=== PATIENT | female | born 1965 | race Caucasian/White ===

== ENCOUNTER 2017-09-07 16:50 | Emergency (ER) | payer MEDICARE ==
--- NOTE | 2017-09-07 17:19 | ERPHSYRPT ---
- History of Present Illness Time Seen by Provider: 09/07/17 17:12 Source: patient Exam Limitations: no limitations Physician History: The patient is a 51-year-old right-handed female who comes in complaining of right hand and wrist pain and swelling for one week. She was seen at another ER and was given [place] and naproxen along with a wrist brace. She has been icing the wrist and hand without relief. She states no x-rays were done at that time a being seen. She denies any trauma. She states that she woke up with it swollen and painful one morning. Her past medical history is significant for anxiety, hypothyroidism, high cholesterol, bilateral knee replacements. Occurred: last week Method of Injury: unknown Quality: constant, aching Severity of Pain-Max: severe Severity of Pain-Current: severe Extremities Pain Location: wrist: right, hand: right Modifying Factors: Improves With: cold therapy, movement, pain medication Associated Symptoms: none Allergies/Adverse Reactions: duloxetine [From Cymbalta] Allergy (Verified 09/07/17 17:04) pregabalin [From Lyrica] Allergy (Verified 09/07/17 17:04) celecoxib [From Celebrex] Adverse Reaction (Mild, Verified 09/07/17 17:04) Home Medications: Buspirone HCl [Buspirone HCl] 5 mg PO DAILY 09/07/17 [History] Hydrocodone/Acetaminophen [Hydrocodone-Acetamin 5-325 mg] 1 tab PO UD 09/07/17 [ History] Levothyroxine Sodium 100 mcg PO DAILY 09/07/17 [History] Lorazepam 0.5 mg [Ativan 0.5 MG] 0.5 mg PO HS 09/07/17 [History] Milnacipran HCl [Savella] 100 mg PO BID 09/07/17 [History] Rosuvastatin Calcium [Rosuvastatin Calcium] 5 mg PO DAILY 09/07/17 [History] Sertraline HCl [Sertraline HCl] 50 mg PO DAILY 09/07/17 [History] Tizanidine HCl 4 mg [Zanaflex 4 MG] 4 mg PO UD 09/07/17 [History] - Review of Systems Constitutional: No Fever, No Chills Eyes: No Symptoms Ears, Nose, & Throat: No Symptoms Respiratory: No Cough, No Dyspnea Cardiac: No Chest Pain, No Edema, No Syncope Abdominal/Gastrointestinal: No Abdominal Pain, No Nausea, No Vomiting, No Diarrhea Genitourinary Symptoms: No Dysuria Musculoskeletal: Joint Pain, Joint Swelling Skin: No Rash Neurological: No Dizziness, No Focal Weakness, No Sensory Changes Psychological: No Symptoms Endocrine: No Symptoms Hematologic/Lymphatic: No Symptoms Immunological/Allergic: No Symptoms All Other Systems: Reviewed and Negative - Nursing Vital Signs Nursing Vital Signs: Initial Vital Signs Temperature 98.4 F 09/07/17 17:12 Pulse Rate 115 H 09/07/17 17:12 Respiratory Rate 18 09/07/17 17:12 Blood Pressure 151/90 09/07/17 17:12 O2 Sat by Pulse Oximetry 97 09/07/17 17:12 Pain Scale Pain Intensity 6 - Physical Exam General Appearance: mild distress Eyes, Ears, Nose, Throat Exam: moist mucous membranes Neck Exam: non-tender, supple Cardiovascular/Respiratory Exam: chest non-tender, normal breath sounds, regular rate/rhythm, no respiratory distress Abdominal Exam: non-tender, No guarding Back Exam: normal inspection, No vertebral tenderness Shoulder Exam: normal inspection Elbow/Forearm Exam: normal inspection Wrist Exam: limited ROM (right wrist), pain, soft tissue tenderness, swelling Hand Exam: limited ROM (right hand), soft tissue tenderness, swelling Neuro/Tendon Exam: normal sensation, normal motor functions Mental Status Exam: alert, oriented x 3, cooperative Skin Exam: normal color, warm, dry SpO2 Interpretation: normal - Radiology Exams Right Wrist X-ray Interpretation: Reviewed by me, Teleradiologist Report, Negative, Other ( degenerative chondrocalcinosis per Dr Fox.) Right Hand X-ray Interpretation: Reviewed by me, Teleradiologist Report, Negative (per Dr Fox) Ordered Tests: Active Orders 24 hr Category Date Time Status HAND (MINIMUM 3 VIEWS) Stat Exams 09/07/17 17:37 Taken WRIST (MIN 3 VIEWS) Stat Exams 09/07/17 17:24 Taken - Progress Progress: unchanged Counseled pt/family regarding: diagnosis, need for follow-up, rad results - Departure Time of Disposition: 18:44 Departure Disposition: Home Clinical Impression: Swelling of right hand, Right wrist pain Condition: Stable Critical Care Time: No Referrals: JOIE LEDESMA MD [Primary Care Provider] - Additional Instructions: The x-ray of your right hand and wrist did not show anything acute or any broken bones. It is unclear to me why you have the pain and swelling. You were given Toradol 60 mg by IM in the ER. You can continue tomorrow with naproxen 500 mg 2 times a day as needed. Wear the wrist brace as needed and apply ice as needed. Please follow-up with the [facility] at [address], [place]. The phone number is [phone] in [place] and in [place] for scheduling at all of their sites.
[2017-09-07 18:40] VITALS: BP 152/104; PULSE 104; O2SAT 100
[2017-09-07] MEDS ORDERED: TORAdol 30 mg Injection IM ONE (18:44)
[2017-09-07] MEDS ORDERED: TORAdol 30 mg Injection ONE (18:46)
--- NOTE | 2017-09-08 08:34 | XRAY ---
Indication: Pain and swelling. Comparison: None 3 views of the right wrist demonstrates faint ulnocarpal degenerative chondrocalcinosis and tiny hamate cyst. No other bony, articular, or soft tissue abnormalities. Hand reported separately.
--- NOTE | 2017-09-08 08:34 | XRAY ---
Indication: Pain and swelling. Comparison: None 3 views of the right hand obtained. No bony, articular, or soft tissue abnormalities. Wrist reported separately.
== END 2017-09-07 19:01 | disposition home or self-care (01) ==
LOC: ED 16:50
DX: M25.441 Effusion, right hand (principal); M25.531 Pain in right wrist; Z79.899 Other long term (current) drug therapy
CPT/HCPCS: 73110; 73130; 96372; 99283; J1885

== ENCOUNTER 2023-07-27 18:02 | Emergency (ER) | payer MEDICARE ==
--- NOTE | 2023-07-27 18:04 | ERPHSYRPT ---
- History of Present Illness Time Seen by Provider: 07/27/23 18:04 Source: patient, other Exam Limitations: no limitations Physician History: This is a 57-year-old white female patient was brought to the emergency department by family/friend by private vehicle. Patient is concerned that she may have cellulitis of her right foot. Symptoms of pain and redness began 4 days ago and has worsened since that time. Patient has a history of fibromyalgia, hypothyroidism and hyperlipidemia. She has not had any fevers. She did not step on any items. She states that she was not bitten by any insects. Patient does not have a history of gout. Method of Injury: unknown Occurred: days ago (4) Quality: constant, aching, burning Severity of Pain-Max: moderate Severity of Pain-Current: moderate Lower Extremities Pain: foot: right Modifying Factors: Improves With: movement Associated Symptoms: other (Hurts to bear weight but can do so) Allergies/Adverse Reactions: cat dander Allergy (Intermediate, Verified 07/27/23 18:51) congestion duloxetine [From Cymbalta] Allergy (Verified 09/07/17 17:04) pregabalin [From Lyrica] Allergy (Verified 09/07/17 17:04) celecoxib [From Celebrex] Adverse Reaction (Mild, Verified 09/07/17 17:04) Home Medications: Buspirone HCl 5 mg PO DAILY 09/07/17 [History] Hydrocodone/Acetaminophen [Hydrocodone-Acetamin 5-325 mg] 1 tab PO UD 09/07/17 [History] Levothyroxine Sodium 100 mcg PO DAILY 09/07/17 [History] Lorazepam 0.5 mg [Ativan 0.5 MG] 0.5 mg PO HS 09/07/17 [History] Milnacipran HCl [Savella] 100 mg PO BID 09/07/17 [History] Rosuvastatin Calcium 5 mg PO DAILY 09/07/17 [History] Sertraline HCl 50 mg PO DAILY 09/07/17 [History] Tizanidine HCl 4 mg [Zanaflex 4 MG] 4 mg PO UD 09/07/17 [History] Hx Tetanus, Diphtheria Vaccination/Date Given: Yes Hx Influenza Vaccination/Date Given: Yes Hx Pneumococcal Vaccination/Date Given: No Travel Risk - International Travel Have you traveled outside of the country in past 3 weeks: No - Emerging Infectious Disease Are you exhibiting symptoms associated with any current EIDs: No - Review of Systems Constitutional: No Symptoms Eyes: No Symptoms Ears, Nose, & Throat: No Symptoms Respiratory: No Symptoms Cardiac: No Symptoms Abdominal/Gastrointestinal: No Symptoms Genitourinary Symptoms: No Symptoms Skin: Cellulitis (right foot lateral dorsal aspect) Neurological: No Symptoms Psychological: No Symptoms Endocrine: No Symptoms Hematologic/Lymphatic: No Symptoms Immunological/Allergic: No Symptoms All Other Systems: Reviewed and Negative - Past Medical History Pertinent Past Medical History: Yes Musculoskeletal History: Fibromyalgia Psycho-Social History: Anxiety, Depression - Past Surgical History Past Surgical History: No - Social History Smoking Status: Never smoker Drug Use: none Patient Lives Alone: No - Nursing Vital Signs Nursing Vital Signs: Initial Vital Signs Temperature 98.8 F 07/27/23 18:46 Pulse Rate 120 H 07/27/23 18:46 Respiratory Rate 22 07/27/23 18:46 Blood Pressure 141/69 07/27/23 18:46 O2 Sat by Pulse Oximetry 98 07/27/23 18:46 Pain Scale Pain Intensity 10 - Physical Exam General Appearance: no apparent distress, alert, anxiety Eyes, Ears, Nose, Throat Exam: normal ENT inspection, moist mucous membranes Neck Exam: normal inspection, non-tender, supple, full range of motion Cardiovascular/Respiratory Exam: chest non-tender, no respiratory distress Gastrointestinal/Abdominal Exam: non-tender Back Exam: normal inspection, normal range of motion, No CVA tenderness, No vertebral tenderness Hips Exam: bilateral: non-tender, normal inspection, normal range of motion, no evidence of injury Legs Exam: bilateral leg: non-tender, normal inspection, normal range of motion, no evidence of injury Knees Exam: bilateral knee: non-tender, normal inspection, normal range of motion, no evidence of injury Ankle Exam: bilateral ankle: non-tender, normal inspection, normal range of motion, no evidence of injury Foot Exam: right foot: infection (Lateraldorsal aspect), soft tissue tenderness (Lateraldorsal aspect), left foot: non-tender, normal inspection, normal range of motion, no evidence of injury Neuro/Tendon Exam: normal sensation, normal motor functions, normal tendon functions, responds to pain, no evidence tendon injury Mental Status Exam: alert, oriented x 3, cooperative Skin Exam: other (Cellulitis right foot lateraldorsal aspect) SpO2 Interpretation: normal O2 Delivery: Room Air - Course Nursing assessment & vital signs reviewed: Yes Ordered Tests: Medication Summary Generic Name Dose Route Start Last Admin Trade Name Rosalva PRN Reason Stop Dose Admin Ceftriaxone Sodium 1,000 mg 07/27/23 19:13 Ceftriaxone Sodium 1000 Mg Inj Vial IM 07/27/23 19:14 STAT ONE Hydromorphone HCl 1 mg 07/27/23 19:15 Hydromorphone 1 Mg/1ml Inj IM 07/27/23 19:16 STAT ONE Ondansetron HCl 4 mg 07/27/23 19:14 Zofran 4 Mg/Udtablet Orally Disintegrating PO 07/27/23 19:15 STAT ONE Trimethoprim/Sulfamethoxazole 1 tab 07/27/23 19:14 Smz/Tmp Ds Tablet 1 Tablet PO 07/27/23 19:15 STAT ONE - Progress Progress: unchanged Progress Note: 07/27/23 19:35 Patient's medical issue is 1 of low complexity. The level of complexity in the workup performed is based on review of the patient's past medical history, review the patient's medication list, review of patient drug allergy list, history present illness and physical findings on examination. This patient's workup does not require radiographic or laboratory studies. I am providing the patient with both intramuscular and oral antibiotics. We will also provide the patient with pain relief here in the emergency department followed by remotely sending prescription for Bactrim DS and [place] 5/325 to her pharmacy. Patient will be reevaluated tomorrow in our emergency department on 07/28/2023. Counseled pt/family regarding: diagnosis, need for follow-up Medical Desision Making - Independent Historian Additional History obtained from: Relative/friend - Diagnostic Testing Diagnostic test were ordered, analyzed, and reviewed by me: No - Risk of complications The pt has a mod risk of morbidity or mortality based on: Need for prescription drug management - Departure Departure Disposition: Home Clinical Impression: Cellulitis of right foot Condition: Stable Critical Care Time: No Referrals: JUAN MIGUEL REARDON [Primary Care Provider] - Follow up/PCP as directed Additional Instructions: Take your medications as prescribed. Return to the emergency department tomorrow, 07/28/2023 as discussed for reevaluation. Prescriptions: Hydrocodone/APAP 5/325 [[place] 5/325 mg] 1 each PO Q8H PRN PRN #6 tablet MDD 3 PRN Reason: Pain Smz/Tmp Ds Tablet [Bactrim Ds Tablet] 1 udtab PO BID #14 tablet
[2023-07-27 18:51] VITALS: TEMP 98.8
[2023-07-27] MEDS ORDERED: ZOFRAN ODT 4 MG ONE (20:17)
[2023-07-27] MEDS ORDERED: BACTRIM DS TABLET PO ONE (20:17)
[2023-07-27] MEDS ORDERED: Hydromorphone 1 mg/ml Injection ONE (20:17)
[2023-07-27] MEDS ORDERED: XYLOCAINE 1% HCL 20 ML MDV ONE (20:18)
[2023-07-27] MEDS ORDERED: Rocephin 1000 MG INJ ONE (20:18)
[2023-07-27] MEDS: ZOFRAN ODT 4 MG PO ONE (20:23)
[2023-07-27] MEDS: Hydromorphone 1 mg/ml Injection IM ONE (20:24)
[2023-07-27] MEDS: Rocephin 1000 MG INJ IM ONE (20:24)
[2023-07-27] MEDS: BACTRIM DS TABLET PO ONE (20:25)
[2023-07-27 20:32] VITALS: RESP 18
[2023-07-27] MEDS ORDERED: NORCO 5/325 MG ONE (21:05)
[2023-07-27] MEDS: NORCO 5/325 MG PO ONE (21:11)
[2023-07-27 21:14] VITALS: BP 145/68; PULSE 115; O2SAT 98
== END 2023-07-27 21:22 | disposition home or self-care (01) ==
LOC: ED 18:02
DX: L03.115 Cellulitis of right lower limb (principal); M79.671 Pain in right foot; E78.5 Hyperlipidemia, unspecified; Z79.891 Long term (current) use of opiate analgesic; Z79.899 Other long term (current) drug therapy
CPT/HCPCS: 96372; 99283; J0696; J1170; Q0162; A9270-GY

== ENCOUNTER 2023-07-28 11:39 | Emergency (ER) | payer MEDICARE ==
[2023-07-28 11:48] VITALS: BP 113/75; PULSE 108; RESP 18; TEMP 97.3; O2SAT 98
--- NOTE | 2023-07-28 12:13 | ERPHSYRPT ---
- History of Present Illness Time Seen by Provider: 07/28/23 12:08 Source: patient Exam Limitations: no limitations Patient Subjective Stated Complaint: pt here for a recheck of right foot, was seen yesterday in er and dx with cellulitis and given injection and rx for anti biotics. pt states she feels like its better today Triage Nursing Assessment: pt alert, arrived per wc, resp easy, skin w/d/p. has swelling and warmth to foot, nail beds pink. redness was stephanie with skin marker yesterday and redness is with in line Physician History: Patient seen by Dr. Pabon yesterday. Patient given a dose of antibiotics. Patient discharged on Bactrim. Patient advised to come to our ED for a recheck. Patient took her first dose of Bactrim today. Pain is improved. No systemic manifestations to her infection. The cellulitis appears to be improving. Patient has no complaints. Portions of this note were created with voice recognition technology. There may be grammatical, spelling, punctuation or sound alike errors Timing/Duration: yesterday Severity: moderate Modifying Factors: Improves With: other (Some mild tenderness to palpation) Associated Symptoms: denies symptoms Allergies/Adverse Reactions: cat dander Allergy (Intermediate, Verified 07/28/23 11:44) congestion duloxetine [From Cymbalta] Allergy (Verified 07/28/23 11:44) pregabalin [From Lyrica] Allergy (Verified 07/28/23 11:44) celecoxib [From Celebrex] Adverse Reaction (Mild, Verified 07/28/23 11:44) Home Medications: Buspirone HCl 5 mg PO DAILY 09/07/17 [History] Hydrocodone/Acetaminophen [Hydrocodone-Acetamin 5-325 mg] 1 tab PO UD 09/07/17 [History] Levothyroxine Sodium 100 mcg PO DAILY 09/07/17 [History] Lorazepam 0.5 mg [Ativan 0.5 MG] 0.5 mg PO HS 09/07/17 [History] Milnacipran HCl [Savella] 100 mg PO BID 09/07/17 [History] Rosuvastatin Calcium 5 mg PO DAILY 09/07/17 [History] Sertraline HCl 50 mg PO DAILY 09/07/17 [History] Tizanidine HCl 4 mg [Zanaflex 4 MG] 4 mg PO UD 09/07/17 [History] Hx Tetanus, Diphtheria Vaccination/Date Given: Yes Hx Influenza Vaccination/Date Given: Yes Hx Pneumococcal Vaccination/Date Given: No Travel Risk - International Travel Have you traveled outside of the country in past 3 weeks: No - Emerging Infectious Disease Are you exhibiting symptoms associated with any current EIDs: Yes Symptoms: Other (Please Comment) Comment: cellulitis - Review of Systems Constitutional: No Symptoms, No Fever, No Chills Eyes: No Symptoms Ears, Nose, & Throat: No Symptoms Respiratory: No Symptoms, No Cough, No Dyspnea Cardiac: No Symptoms, No Chest Pain, No Edema, No Syncope Abdominal/Gastrointestinal: No Symptoms, No Abdominal Pain, No Nausea, No Vomiting, No Diarrhea Genitourinary Symptoms: No Symptoms, No Dysuria Musculoskeletal: No Symptoms, No Back Pain, No Neck Pain Skin: No Symptoms, No Rash Neurological: No Symptoms, No Dizziness, No Focal Weakness, No Sensory Changes Psychological: No Symptoms Endocrine: No Symptoms Hematologic/Lymphatic: No Symptoms Immunological/Allergic: No Symptoms All Other Systems: Reviewed and Negative - Past Medical History Pertinent Past Medical History: Yes Cardiac History: High Cholesterol Musculoskeletal History: Fibromyalgia Psycho-Social History: Anxiety, Depression - Past Surgical History Past Surgical History: No Female Surgical History: Hysterectomy, Tubal Ligation Other Surgical History: bilat knee surgery - Social History Smoking Status: Never smoker Exposure to second hand smoke: No Drug Use: none Patient Lives Alone: No - Nursing Vital Signs Nursing Vital Signs: Initial Vital Signs Temperature 97.3 F 07/28/23 11:47 Pulse Rate 108 H 07/28/23 11:47 Respiratory Rate 18 07/28/23 11:47 Blood Pressure 113/75 07/28/23 11:47 O2 Sat by Pulse Oximetry 98 07/28/23 11:47 Pain Scale Pain Intensity 5 - Physical Exam General Appearance: no apparent distress, alert Eye Exam: PERRL/EOMI, eyes nml inspection Ears, Nose, Throat Exam: normal ENT inspection, TMs normal, pharynx normal, moist mucous membranes Neck Exam: normal inspection, non-tender, supple, full range of motion Respiratory Exam: normal breath sounds, lungs clear, airway intact, No respiratory distress Cardiovascular Exam: regular rate/rhythm, normal heart sounds, normal peripheral pulses Gastrointestinal/Abdomen Exam: soft, normal bowel sounds, No tenderness, No mass Back Exam: normal inspection, normal range of motion, No CVA tenderness, No vertebral tenderness Extremity Exam: normal inspection, normal range of motion, pelvis stable Neurologic Exam: alert, oriented x 3, cooperative, normal mood/affect, nml cerebellar function, nml station & gait, sensation nml, No motor deficits Skin Exam: normal color, warm, dry, No rash Lymphatic Exam: No adenopathy SpO2 Interpretation: normal SpO2: 98 O2 Delivery: Room Air - Course Nursing assessment & vital signs reviewed: Yes - Progress Progress: improved Progress Note: 57-year-old female presents to our ED for reassessment of her foot cellulitis. Antibiotics dosed yesterday. Patient took her Bactrim today. Pain improved. No lymphangitis. Cellulitis is improving and remains local. Patient has no systemic manifestations. She has no complaints. Patient advised to follow-up with her primary care doctor for reexamination within a week's time. No indication for further workup will discharge home. Patient voices no other complaints or concerns at this time Portions of this note were created with voice recognition technology. There may be grammatical, spelling, punctuation or sound alike errors Complexity problem addressed is moderate acute complicated No critical care time Complex of data reviewed and analyzed is none. No specialized testing ordered. Diagnosis made based on history and physical exam Risk of complication and or risk of morbidity/mortality patient management is low. Patient has an antibiotic prescription that was prescribed to her ye which she has started taking today no need for additional coverage Vital stable. Time spent to discharge patient approximately 10 minutes. Plan of care established for shared decision making. No social determinants of health present impede follow-up. Portions of this note were created with voice recognition technology. There may be grammatical, spelling, punctuation or sound alike errors 07/28/23 12:11 Counseled pt/family regarding: diagnosis, need for follow-up - Departure Departure Disposition: Home Clinical Impression: Cellulitis, Wellness check Condition: Stable Critical Care Time: No Referrals: JUAN MIGUEL REARDON [Primary Care Provider] - Follow up/PCP as directed Additional Instructions: Discharge/Care Plan [email or web address] A was seen on 07/28/23 in the Emergency Room. The patient was counseled regarding Diagnosis,Lab results, Imaging studies, need for follow up and when to return to the Emergency Room. Prescriptions given: Discharge Note I have spoken with the patient and/or caregivers. I have explained the patient's condition, diagnosis and treatment plan based on the information available to me at this time. I have answered the patient's and/or caregiver's questions and addressed any concerns. The patient and/or caregivers have as good understanding of the patient's diagnosis, condition and treatment plan as can be expected at this point. The vital signs have been stable. The patient's condition is stable and appropriate for discharge from the emergency department. The patient will pursue further outpatient evaluation with the primary care physician or other designated or consulting physician as outlined in the discharge instructions. The patient and/or caregivers are agreeable to this plan of care and follow-up instructions have been explained in detail. The patient and/or caregivers have received these instruction. The patient/and or caregivers are aware that any significant change in condition or worsening of symptoms should prompt an immediate return to this or the closest emergency department or call 911.
== END 2023-07-28 12:21 | disposition home or self-care (01) ==
LOC: ED 11:39
DX: L03.115 Cellulitis of right lower limb (principal); E78.5 Hyperlipidemia, unspecified; Z79.899 Other long term (current) drug therapy
CPT/HCPCS: 99281